=== PATIENT | female | born 1955 | race Caucasian/White ===

== ENCOUNTER 2017-01-03 20:46 | Emergency (ER) | payer OTHER ==
[~2017-01-03] VITALS: Ht 172.7 cm; Wt 95.9 kg
[~2017-01-03 20:46] MED LIST: ACCUPRIL10 MG PO; ACCUPRIL20 MG PO; ACCUPRIL40 MG PO; ALPRAZOLAM0.25 M2 PO; AMLODIPINE BESYL5 MG PO; ASPIR-TRIN325 M1 PO; ASPIRIN325 MG PO; BAYER ASPIRIN325 M1 PO; Benadryl PO; CRESTOR5 MG PO; Cipro PO; Coumadin,Jantoven PO; DIABETA,MICRONAS5 MG PO; DIABETA2.5 MG PO; DILAUDID2 MG PO; DILAUDID4 MG PO; Diabeta,Micronase PO; Dilaudid PO; EFFIENT10 MG PO; Ecotrin PO; Effient PO; Feosol PO; GLUCOPHAGE1000 M1 PO; GLUCOPHAGE1000 MG PO; GLYBURIDE2.5 MG PO; GLYBURIDE5 MG PO; Glucophage PO; HYDROCODON-ACE1 EAC7 PO; ISOSORBIDE MONO30 MG PO; Januvia PO; LABETALOL HCL300 MG PO; LEVAQUIN750 MG PO; LITE COAT ASPI325 M1 PO; LOPRESSOR50 MG PO; Lopressor PO; METFORMIN HCL1000 MG PO; METOPROLOL SUCC50 MG PO; METOPROLOL TART50 MG PO; NAPROSYN500 MG PO; NITROSTAT0.4 MG SL; NORCO 5/3251 TABLET PO; NORCO 7.5/321 TABLET PO; NORMODYNE,TRAN200 MG PO; NORVASC2.5 MG PO; NORVASC5 MG PO; NOVOLOG 10100 UNITS/ SC; NOVOLOG PE100 UNITS/ SC; Normodyne,Trandate PO; OXYCODONE HCL10 MG PO; OXYCODONE HCL5 M1; OXYCONTIN20 MG PO; PREDNISONE20 MG PO; PROMETHAZINE HC25 M1 PO; PROTONIX40 MG PO; QUINAPRIL HCL20 MG PO; QUINAPRIL HCL40 MG PO; SENOKOT S,PE1 TABLET PO; Senokot S,Pericolace PO; Skelaxin PO; TOPROL XL50 MG PO; TYLENOL REGULA325 MG PO; Theragran PO; VALIUM5 MG PO; VANCOMYCIN1 GM/250 M IV; VITAMIN D31000 UNIT PO; VYTORIN 10/21 TABLET PO; Vicodin,Norco 5/325 PO; WARFARIN SODIUM1 MG PO; Xanax PO; ZOFRAN4 MG PO; labetalol PO
[2017-01-03] MEDS ORDERED: ULTRAM50 MG PO (21:20)
[2017-01-03 21:24] VITALS: BP 180/82
[2017-01-10] MEDS ORDERED: GLUCOPHAGE500 MG PO (13:49)
[2017-01-10] MEDS ORDERED: [UNRECOGNIZED DRUG - CODE] SL (13:51)
== END 2017-01-03 21:33 | disposition home or self-care (01) ==
LOC: EXP 20:46 → EME 20:46 → EXP 21:33
DX: M79.642 Pain in left hand (principal); I10 Essential (primary) hypertension; E11.9 Type 2 diabetes mellitus without complications; Z79.82 Long term (current) use of aspirin; Z79.84 Long term (current) use of oral hypoglycemic drugs; Z79.4 Long term (current) use of insulin
CPT/HCPCS: 99281; 99284; J8540

== ENCOUNTER 2017-01-16 06:30 | Inpatient (IN) | payer OTHER ==
[~2017-01-16] VITALS: Ht 172.7 cm; Wt 93.1 kg
[~2017-01-16 06:30] MED LIST changes: +GLUCOPHAGE500 MG PO; +ULTRAM50 MG PO; +[UNRECOGNIZED DRUG - CODE] SL
[2017-01-16 07:38] VITALS: BP 142/76
[2017-01-16 08:09] LABS: POINT-OF-CARE METER ID UU13113694
[2017-01-16 12:07] LABS: POINT-OF-CARE METER ID UU13113675
[2017-01-16 13:43] VITALS: BP 148/77
[2017-01-16 15:24] VITALS: BP 133/71
[2017-01-16 16:43] LABS: POINT-OF-CARE METER ID UU13113712
[2017-01-16 20:28] VITALS: BP 172/74
[2017-01-16 22:01] LABS: POINT-OF-CARE METER ID UU13113712
[2017-01-16 23:56] VITALS: BP 171/72
[2017-01-17 04:23] VITALS: BP 178/81
[2017-01-17 06:40] LABS: HEMATOCRIT 36.7 % (36.0-46.0); MCV 93.6 FL (83-99)
[2017-01-17 07:58] LABS: POINT-OF-CARE METER ID UU13113712
[2017-01-17 08:00] VITALS: BP 198/80
[2017-01-17 11:30] LABS: POINT-OF-CARE METER ID UU13113712
[2017-01-17 12:23] VITALS: BP 156/75
[2017-01-17 15:53] VITALS: BP 176/82
[2017-01-17 16:38] LABS: POINT-OF-CARE METER ID UU13113712
[2017-01-17 20:04] VITALS: BP 191/89
[2017-01-17 22:09] LABS: POINT-OF-CARE METER ID UU13113712
[2017-01-18] VITALS (9 sets, daily range): BP systolic 128–176; BP diastolic 72–85
[2017-01-18 07:08] LABS: HEMATOCRIT 35.8 % (36.0-46.0)
[2017-01-18 07:26] LABS: POINT-OF-CARE METER ID UU13113712
[2017-01-18 11:32] LABS: POINT-OF-CARE METER ID UU13113712
[2017-01-18 16:20] LABS: POINT-OF-CARE METER ID UU13113712
[2017-01-18 21:31] LABS: POINT-OF-CARE METER ID UU14149397
[2017-01-19 04:37] VITALS: BP 152/72
[2017-01-19 06:32] LABS: POINT-OF-CARE METER ID UU14149397
[2017-01-19 08:26] VITALS: BP 132/66
[2017-01-19] MEDS ORDERED: OXYCONTIN10 MG PO (09:11)
[2017-01-19] MEDS ORDERED: OXYCODONE HCL5 MG PO (09:11)
[2017-01-19] MEDS ORDERED: ELIQUIS2.5 MG PO (09:11)
[2017-01-19] MEDS ORDERED: ONDANSETRON ODT4 MG PO (09:11)
[2017-01-19] MEDS ORDERED: SENNA PLUS TAB1 EACH PO (09:11)
[2017-01-19 11:04] VITALS: BP 123/60
[2017-01-19 17:23] LABS: POINT-OF-CARE METER ID UU14208753
[2017-01-19 21:39] LABS: POINT-OF-CARE METER ID UU14149397
[2017-01-19 23:26] VITALS: BP 143/66
[2017-01-20 08:23] VITALS: BP 137/58
== END 2017-01-20 15:17 | DRG 470 ==
LOC: 2SOUTH 06:30 → 3WEST 13:09 → 2SOUTH 13:16 → 3WEST 01-18 11:54 → 3EAST 01-18 18:15
PROVIDERS: Orthopaedic Surgery
PROC: 0SRC0J9 Replacement of Right Knee Joint with Synthetic Substitute, Cemented, Open Approach (ICD-10-PCS; principal; 2017-01-16)
DX: M17.11 Unilateral primary osteoarthritis, right knee (principal); I25.10 Atherosclerotic heart disease of native coronary artery without angina pectoris; Z95.5 Presence of coronary angioplasty implant and graft; E78.2 Mixed hyperlipidemia; E11.9 Type 2 diabetes mellitus without complications; I25.2 Old myocardial infarction; I10 Essential (primary) hypertension; R50.9 Fever, unspecified; G89.18 Other acute postprocedural pain; Z96.652 Presence of left artificial knee joint; E11.65 Type 2 diabetes mellitus with hyperglycemia
CPT/HCPCS: 71010; 82948; 85014; 85018; 93971; 97530 GO; 97530 GP; C1713; J0131; J0690; J1170; J1815; J1885; J2175; J2250; J2405; J2795; J3010; J7030; J7050

== ENCOUNTER 2017-01-29 09:13 | Observation (INO) | payer OTHER ==
[~2017-01-29] VITALS: Ht 172.7 cm; Wt 89.7 kg
[~2017-01-29 09:13] MED LIST changes: +ELIQUIS2.5 MG PO; +ONDANSETRON ODT4 MG PO; +OXYCODONE HCL5 MG PO; +OXYCONTIN10 MG PO; +SENNA PLUS TAB1 EACH PO
[2017-01-29 09:58] LABS: EOSINOPHIL (%) 1.7 % (0-5); EOSINOPHIL COUNT 0.1 K/uL (0-0.3); HEMATOCRIT 32.8 % (36.0-46.0); IMMATURE GRANULOCYTE (%) 0.5 % (0.0-0.7); INSTRUMENT ABS NEUTROPHIL CT 5.8 K/uL; LYMPHOCYTE COUNT 1.6 K/uL (1.0-2.8); MCH 29.7 PG (29.0-34.0); MCV 92.9 FL (83-99); MEAN PLAT.VOLUME 9.5 uM^3 (9.5-12.4); MONOCYTE (%) 6.3 % (3-12); MONOCYTE COUNT 0.5 K/uL (0-0.8); NEUTROPHIL (%) 71.9 % (45-76); NEUTROPHIL COUNT 5.8 K/uL (1.8-6.4); RBC DIS.WIDTH-CV 13.1 % (11.8-14.6); RBC DIS.WIDTH-SD 44.3 % (39-53); WHITE BLOOD COUNT 8.1 K/uL (4.1-10.2)
[2017-01-29 09:59] LABS: RED BLOOD COUNT 3.53 M/uL (3.80-5.20)
[2017-01-29 10:00] LABS: PLATELET COUNT 349 K/uL (156-360)
[2017-01-29 10:04] LABS: INTER. NORMALIZED RATIO 1.1; PROTHROMBIN TIME 12.1 SEC (10.2-12.9)
[2017-01-29 10:28] LABS: ANION GAP 13 MEQ/L (2-14); CHLORIDE 104 MEQ/L (99-109); POTASSIUM 3.7 MEQ/L (3.7-5.4); SAMPLE HEMOLYSIS CHECK 0; SAMPLE ICTERIC CHECK 0; SAMPLE LIPEMIA CHECK 0; SODIUM 139 MEQ/L (136-147); TOTAL BILIRUBIN 0.6 MG/DL (0.0-1.0)
[2017-01-29 10:34] LABS: ALKALINE PHOSPHATASE 220 IU/L (3-129); GFR ESTIMATE (CALCULATED) > 59 mL/min/; GLUCOSE 140 mg/dL (70-99); UREA NITROGEN (BUN) 22 mg/dL (9-23)
[2017-01-29 11:58] LABS: POINT-OF-CARE METER ID UU13113702; POINT-OF-CARE USER ID NUTJNM
[2017-01-29] MEDS ORDERED: CYANOCOBALAM1000 MCG PO (12:27)
[2017-01-29] MEDS ORDERED: OXYCONTIN10 MG PO (12:28)
[2017-01-29] MEDS ORDERED: ELIQUIS2.5 MG PO (12:30)
[2017-01-29 13:44] LABS: ADD MIUA? NO; BILIRUBIN NEGATIVE; BLOOD NEGATIVE; COLOR YELLOW ((YELLOW)); GLUCOSE (STRIP) 50; KETONES 20; LEUKOCYTES NEGATIVE; NITRITE NEGATIVE; PROTEIN (STRIP) NEGATIVE; SPECIFIC GRAVITY 1.015 (1.000-1.030); UCUL ADDED? NO; UROBILINOGEN 0.2 MG/DL (0.2-1.0)
[2017-01-29 15:14] LABS: LIPASE 38 U/L (1.0-51.0)
[2017-01-29 16:48] VITALS: BP 141/74
[2017-01-29 18:03] LABS: POINT-OF-CARE METER ID UU13113700
[2017-01-29 20:41] VITALS: BP 140/76
[2017-01-29 21:56] LABS: POINT-OF-CARE METER ID UU13113831
[2017-01-29 23:09] VITALS: BP 157/65
[2017-01-30 03:34] VITALS: BP 135/74
[2017-01-30 05:43] LABS: EOSINOPHIL COUNT 0.1 K/uL (0-0.3); HEMATOCRIT 32.6 % (36.0-46.0); IMMATURE GRANULOCYTE (%) 0.6 % (0.0-0.7); INSTRUMENT ABS NEUTROPHIL CT 4.6 K/uL; LYMPHOCYTE COUNT 1.8 K/uL (1.0-2.8); MCH 30.5 PG (29.0-34.0); MCHC 32.5 G/DL (30.0-36.0); MCV 93.7 FL (83-99); MEAN PLAT.VOLUME 9.8 uM^3 (9.5-12.4); MONOCYTE (%) 6.8 % (3-12); MONOCYTE COUNT 0.5 K/uL (0-0.8); NEUTROPHIL (%) 65.3 % (45-76); NEUTROPHIL COUNT 4.6 K/uL (1.8-6.4); PLATELET COUNT 373 K/uL (156-360); RBC DIS.WIDTH-CV 13.4 % (11.8-14.6); RBC DIS.WIDTH-SD 45.8 % (39-53); RED BLOOD COUNT 3.48 M/uL (3.80-5.20); WHITE BLOOD COUNT 7.1 K/uL (4.1-10.2)
[2017-01-30 06:06] LABS: ANION GAP 9 MEQ/L (2-14); CHLORIDE 106 MEQ/L (99-109); GFR ESTIMATE (CALCULATED) 54 mL/min/; HDL CHOLESTEROL 34 MG/DL (Desirable>=50); LDL CHOLESTEROL 102 mg/dL (Desirable<100); NON-HDL CHOLESTEROL 127 mg/dL (Desirable<160); POTASSIUM 4.2 MEQ/L (3.7-5.4); SAMPLE HEMOLYSIS CHECK 0; SAMPLE ICTERIC CHECK 0; SAMPLE LIPEMIA CHECK 0; SODIUM 142 MEQ/L (136-147); TOTAL CHOLESTEROL 161 mg/dL (Desirable<200); TRIGLYCERIDES 123 MG/DL (Normal: <150); UREA NITROGEN (BUN) 17 mg/dL (9-23)
[2017-01-30 06:10] LABS: GLUCOSE 91 mg/dL (70-99)
[2017-01-30 07:19] VITALS: BP 149/74
[2017-01-30 08:18] LABS: Estimated Average Glucose 134 mg/dL (70-123); HEMOGLOBIN A1c (GLYCOHEMOGLOB) 6.3 % HGB (Below 5.7)
== END 2017-01-30 11:01 | disposition home or self-care (01) ==
LOC: EME → EDBD 09:13 → EME 09:13 → 5WEST 13:12 → EDOF 13:12 → 5WEST 16:43
PROVIDERS: Emergency Medicine; Family Medicine
DX: R41.82 Altered mental status, unspecified (principal); R11.2 Nausea with vomiting, unspecified; Z96.651 Presence of right artificial knee joint; I25.2 Old myocardial infarction; E11.9 Type 2 diabetes mellitus without complications; Z79.82 Long term (current) use of aspirin; Z79.4 Long term (current) use of insulin; I25.10 Atherosclerotic heart disease of native coronary artery without angina pectoris; I10 Essential (primary) hypertension; R06.02 Shortness of breath
CPT/HCPCS: 70450; 71010; 80048; 80053; 80061; 81003; 82948; 83036; 83690; 85025; 85610; 93005; 99281; 99285; G0378; J2405; J2765; J7030

== ENCOUNTER 2017-02-04 01:07 | Emergency (ER) | payer OTHER ==
[~2017-02-04] VITALS: Ht 172.7 cm; Wt 90.3 kg
[~2017-02-04 01:07] MED LIST changes: +CYANOCOBALAM1000 MCG PO
[2017-02-04 06:47] LABS: EOSINOPHIL (%) 2.7 % (0-5); EOSINOPHIL COUNT 0.2 K/uL (0-0.3); HEMATOCRIT 37.2 % (36.0-46.0); IMMATURE GRANULOCYTE (%) 0.3 % (0.0-0.7); INSTRUMENT ABS NEUTROPHIL CT 4.5 K/uL; LYMPHOCYTE COUNT 1.8 K/uL (1.0-2.8); MCH 29.3 PG (29.0-34.0); MCHC 31.5 G/DL (30.0-36.0); MCV 93.2 FL (83-99); MEAN PLAT.VOLUME 9.5 uM^3 (9.5-12.4); MONOCYTE (%) 5.6 % (3-12); MONOCYTE COUNT 0.4 K/uL (0-0.8); NEUTROPHIL (%) 64.9 % (45-76); NEUTROPHIL COUNT 4.5 K/uL (1.8-6.4); PLATELET COUNT 384 K/uL (156-360); RBC DIS.WIDTH-CV 13.9 % (11.8-14.6); RBC DIS.WIDTH-SD 47.3 % (39-53); RED BLOOD COUNT 3.99 M/uL (3.80-5.20); WHITE BLOOD COUNT 6.9 K/uL (4.1-10.2)
[2017-02-04 06:54] LABS: INTER. NORMALIZED RATIO 1.1; PROTHROMBIN TIME 12.5 SEC (10.2-12.9)
[2017-02-04 07:31] LABS: ANION GAP 8 MEQ/L (2-14); CHLORIDE 104 MEQ/L (99-109); GFR ESTIMATE (CALCULATED) > 59 mL/min/; GLUCOSE 132 mg/dL (70-99); POTASSIUM 3.9 MEQ/L (3.7-5.4); SAMPLE HEMOLYSIS CHECK 0; SAMPLE ICTERIC CHECK 0; SAMPLE LIPEMIA CHECK 0; SODIUM 139 MEQ/L (136-147); UREA NITROGEN (BUN) 22 mg/dL (9-23)
[2017-02-04] MEDS ORDERED: PERCOCET 5/31 TABLET PO (09:43)
[2017-02-04] MEDS ORDERED: ROBAXIN750 MG PO (09:43)
[2017-02-04 11:08] VITALS: BP 157/96
== END 2017-02-04 11:09 | disposition home or self-care (01) ==
LOC: EME 01:07
PROVIDERS: Emergency Medicine
DX: M96.840 Postprocedural hematoma of a musculoskeletal structure following a musculoskeletal system procedure (principal); M25.561 Pain in right knee; Z96.651 Presence of right artificial knee joint; Z98.890 Other specified postprocedural states; E11.9 Type 2 diabetes mellitus without complications; Z79.84 Long term (current) use of oral hypoglycemic drugs; Z79.01 Long term (current) use of anticoagulants; Z79.82 Long term (current) use of aspirin; I10 Essential (primary) hypertension
CPT/HCPCS: 80048; 85025; 85610; 93971; 99281; 99285

== ENCOUNTER 2017-03-13 07:29 | Day surgery (SDC) | payer OTHER ==
[~2017-03-13] VITALS: Ht 172.7 cm; Wt 90.7 kg
[~2017-03-13 07:29] MED LIST changes: +PERCOCET 5/31 TABLET PO; +ROBAXIN750 MG PO
[2017-03-13 08:01] LABS: POINT-OF-CARE METER ID UU13113819
[2017-03-13 08:26] VITALS: BP 166/77
[2017-03-13 10:03] LABS: POINT-OF-CARE METER ID UU13113675
[2017-03-13 12:31] VITALS: BP 139/67
[2017-03-13 13:45] VITALS: BP 124/62
[2017-03-13 15:00] VITALS: BP 142/82
== END 2017-03-13 15:00 | disposition home or self-care (01) ==
LOC: SDC 07:29
PROVIDERS: Orthopaedic Surgery
PROC: 0SSCXZZ Reposition Right Knee Joint, External Approach (ICD-10-PCS; principal; 2017-03-13)
DX: M24.661 Ankylosis, right knee (principal); Z96.651 Presence of right artificial knee joint; I10 Essential (primary) hypertension; E11.9 Type 2 diabetes mellitus without complications; E78.2 Mixed hyperlipidemia; I25.2 Old myocardial infarction; Z79.4 Long term (current) use of insulin; Z79.84 Long term (current) use of oral hypoglycemic drugs; Z79.82 Long term (current) use of aspirin; Z95.5 Presence of coronary angioplasty implant and graft
CPT/HCPCS: 82948; J0131; J1170; J1885; J2250; J2405; J3010; Q0175

== ENCOUNTER 2017-03-23 01:34 | Emergency (ER) | payer OTHER ==
[~2017-03-23] VITALS: Ht 172.7 cm; Wt 90.9 kg
[2017-03-23 02:38] LABS: HEMATOCRIT 35.3 % (36.0-46.0); MCH 29.8 PG (29.0-34.0); MCV 93.1 FL (83-99); MEAN PLAT.VOLUME 9.8 uM^3 (9.5-12.4); PLATELET COUNT 284 K/uL (156-360); RBC DIS.WIDTH-CV 13.8 % (11.8-14.6); RBC DIS.WIDTH-SD 46.7 % (39-53); RED BLOOD COUNT 3.79 M/uL (3.80-5.20); WHITE BLOOD COUNT 7.6 K/uL (4.1-10.2)
[2017-03-23 02:48] LABS: CHLORIDE 104 mEq/L (99-109); POTASSIUM 4.1 mEq/L (3.7-5.4); SODIUM 140 mEq/L (136-147)
[2017-03-23 02:50] LABS: GLUCOSE 145 mg/dL (70-99)
[2017-03-23 02:52] LABS: ANION GAP 14 MEQ/L (2-14)
[2017-03-23 02:54] LABS: GFR ESTIMATE (CALCULATED) 54 mL/min/
[2017-03-23 02:55] LABS: UREA NITROGEN (BUN) 25 mg/dL (9-23)
[2017-03-23 03:00] LABS: PROTHROMBIN TIME 10.7 SEC (10.2-12.9)
[2017-03-23 03:02] VITALS: BP 134/74
[2017-03-23 03:03] LABS: PTT 29.9 SEC (25-37)
[2017-03-23 03:48] LABS: ERTH.SED.RATE 19 MM/HR (0-30)
== END 2017-03-23 04:05 | disposition home or self-care (01) ==
LOC: EME 01:34
PROVIDERS: Emergency Medicine
DX: M25.561 Pain in right knee (principal); G89.29 Other chronic pain; Z96.651 Presence of right artificial knee joint; I10 Essential (primary) hypertension; E11.9 Type 2 diabetes mellitus without complications; I25.2 Old myocardial infarction; Z95.5 Presence of coronary angioplasty implant and graft; Z79.82 Long term (current) use of aspirin
CPT/HCPCS: 73564; 80048; 85027; 85610; 85651; 85730; 86140; 93971; 99281; 99283; J3010

== ENCOUNTER 2017-06-20 17:28 | Emergency (ER) | payer OTHER ==
[~2017-06-20] VITALS: Ht 172.7 cm; Wt 90.9 kg
[2017-06-20] MEDS ORDERED: TAMIFLU75 MG PO (17:45)
[2017-06-20] MEDS ORDERED: MOTRIN600 MG PO (17:45)
[2017-06-20 18:00] VITALS: BP 163/93
== END 2017-06-20 18:01 | disposition home or self-care (01) ==
LOC: EME 17:28
DX: J11.1 Influenza due to unidentified influenza virus with other respiratory manifestations (principal); E11.9 Type 2 diabetes mellitus without complications; Z79.4 Long term (current) use of insulin; I10 Essential (primary) hypertension; I25.2 Old myocardial infarction; K21.9 Gastro-esophageal reflux disease without esophagitis; Z86.73 Personal history of transient ischemic attack (TIA), and cerebral infarction without residual deficits; Z96.652 Presence of left artificial knee joint; Z79.82 Long term (current) use of aspirin
CPT/HCPCS: 99281; 99283

== ENCOUNTER 2017-08-06 17:33 | Observation (INO) | payer OTHER ==
[~2017-08-06] VITALS: Ht 172.7 cm; Wt 95.4 kg
[~2017-08-06 17:33] MED LIST changes: +MOTRIN600 MG PO; +TAMIFLU75 MG PO
[2017-08-06 19:25] LABS: HEMATOCRIT 40.3 % (36.0-46.0); HEMOGLOBIN 13.3 G/DL (11.9-15.5); MCH 30.2 PG (29.0-34.0); MCV 91.6 FL (83-99); PLATELET COUNT 229 K/uL (156-360); RBC DIS.WIDTH-CV 14.3 % (11.8-14.6); RBC DIS.WIDTH-SD 47.7 % (39-53); WHITE BLOOD COUNT 6.1 K/uL (4.1-10.2)
[2017-08-06 19:47] LABS: ALBUMIN 3.9 g/dL (3.2-4.8); CHLORIDE 107 mEq/L (99-109); POTASSIUM 4.4 mEq/L (3.7-5.4); SODIUM 140 mEq/L (136-147)
[2017-08-06 19:50] LABS: GLUCOSE 191 mg/dL (70-99); TOTAL PROTEIN 7.2 g/dL (6.4-8.3)
[2017-08-06 19:52] LABS: TOTAL BILIRUBIN 0.2 mg/dL (0.0-1.0)
[2017-08-06 19:53] LABS: ALKALINE PHOSPHATASE 97 IU/L (3-129); CREATININE 1.5 mg/dL (0.6-1.3); GFR ESTIMATE (CALCULATED) 38 mL/min/
[2017-08-06 19:54] LABS: UREA NITROGEN (BUN) 29 mg/dL (9-23)
[2017-08-06 19:55] LABS: AST (GOT) 15 IU/L (2-34)
[2017-08-06 19:56] LABS: ALT (GPT) 19 IU/L (3-49)
[2017-08-06 19:57] LABS: LIPASE 116 U/L (1.0-51.0)
[2017-08-06 19:58] LABS: TROP-I INTERPRETATION NEGATIVE; TROPONIN-I 0.02 ng/mL (0.0-0.30)
[2017-08-06 22:39] VITALS: BP 186/91
[2017-08-07 04:23] VITALS: BP 174/89
[2017-08-07 06:15] LABS: TROP-I INTERPRETATION NEGATIVE; TROPONIN-I 0.02 ng/mL (0.0-0.30)
[2017-08-07 07:57] VITALS: BP 150/84
[2017-08-07 12:13] VITALS: BP 143/77
[2017-08-07 12:35] LABS: TROP-I INTERPRETATION NEGATIVE; TROPONIN-I 0.02 ng/mL (0.0-0.30)
[2017-08-07 16:03] VITALS: BP 121/73
[2017-08-07] MEDS ORDERED: AMLODIPINE BESY10 MG PO (16:03)
== END 2017-08-07 16:54 | disposition home or self-care (01) ==
LOC: EME 17:33 → 5WEST 21:09 → EDOF 21:09 → ENRESERV 21:14 → 5WEST 22:18 → ENPENDDIS 08-07 → 5WEST 08-07 16:54
PROVIDERS: Emergency Medicine; Family Medicine
DX: R07.9 Chest pain, unspecified (principal); I12.9 Hypertensive chronic kidney disease with stage 1 through stage 4 chronic kidney disease, or unspecified chronic kidney disease; N18.2 Chronic kidney disease, stage 2 (mild); E11.22 Type 2 diabetes mellitus with diabetic chronic kidney disease; E78.5 Hyperlipidemia, unspecified; F41.9 Anxiety disorder, unspecified; M19.90 Unspecified osteoarthritis, unspecified site; I25.10 Atherosclerotic heart disease of native coronary artery without angina pectoris; I25.2 Old myocardial infarction; Z95.5 Presence of coronary angioplasty implant and graft; I25.9 Chronic ischemic heart disease, unspecified; Z96.653 Presence of artificial knee joint, bilateral; Z90.49 Acquired absence of other specified parts of digestive tract; Z90.721 Acquired absence of ovaries, unilateral; Z82.49 Family history of ischemic heart disease and other diseases of the circulatory system; Z88.8 Allergy status to other drugs, medicaments and biological substances; Z86.73 Personal history of transient ischemic attack (TIA), and cerebral infarction without residual deficits; Z79.82 Long term (current) use of aspirin; Z79.4 Long term (current) use of insulin; Z79.01 Long term (current) use of anticoagulants
CPT/HCPCS: 71045; 80053; 83690; 84484; 85027; 93005; 99281; 99284; G0378

== ENCOUNTER 2018-02-24 16:33 | Emergency (ER) | payer OTHER ==
[~2018-02-24 16:33] MED LIST changes: +AMLODIPINE BESY10 MG PO
[2018-02-24 16:55] LABS: BASOPHIL (%) 0.5 % (0-1); EOSINOPHIL (%) 2.2 % (0-5); EOSINOPHIL COUNT 0.2 K/uL (0-0.3); HEMATOCRIT 40.3 % (36.0-46.0); HEMOGLOBIN 13.8 G/DL (11.9-15.5); LYMPHOCYTE (%) 34.6 % (15-42); LYMPHOCYTE COUNT 2.5 K/uL (1.0-2.8); MCH 31.9 PG (29.0-34.0); MCHC 34.2 G/DL (30.0-36.0); MCV 93.1 FL (83-99); MONOCYTE (%) 7.4 % (3-12); MONOCYTE COUNT 0.5 K/uL (0-0.8); NEUTROPHIL (%) 54.3 % (45-76); PLATELET COUNT 236 K/uL (156-360); RBC DIS.WIDTH-CV 12.6 % (11.8-14.6); RBC DIS.WIDTH-SD 43.2 % (39-53); RED BLOOD COUNT 4.33 M/uL (3.80-5.20); WHITE BLOOD COUNT 7.3 K/uL (4.1-10.2)
[2018-02-24 17:07] LABS: AMYLASE 63 IU/L (1-118); CHLORIDE 107 mEq/L (99-109); POTASSIUM 4.3 mEq/L (3.7-5.4); SODIUM 139 mEq/L (136-147)
[2018-02-24 17:08] LABS: GLUCOSE 168 mg/dL (70-99)
[2018-02-24 17:12] LABS: CREATININE 1.5 mg/dL (0.6-1.3); GFR ESTIMATE (CALCULATED) 38 mL/min/; SERUM ETHYL ALCOHOL < 10 mg/dL
[2018-02-24 17:13] LABS: UREA NITROGEN (BUN) 28 mg/dL (9-23)
[2018-02-24 17:15] LABS: LIPASE 68 U/L (1.0-51.0)
[2018-02-24 17:55] LABS: APPEARANCE CLEAR ((CLEAR)); BILIRUBIN NEGATIVE; BLOOD NEGATIVE; COLOR COLORLESS ((YELLOW)); GLUCOSE (STRIP) 150; KETONES NEGATIVE; LEUKOCYTES SMALL; NITRITE NEGATIVE; PROTEIN (STRIP) NEGATIVE; SPECIFIC GRAVITY 1.012 (1.000-1.030); UROBILINOGEN 0.2 MG/DL (0.2-1.0)
[2018-02-24 18:13] LABS: AMPHETAMINE NEGATIVE (500 ng/mL); BARBITURATES NEGATIVE (200 ng/mL); BENZODIAZEPINES NEGATIVE (150 ng/mL); BUPRENORPHINE NEGATIVE (10 ng/mL); COCAINE NEGATIVE (150 ng/mL); METHADONE NEGATIVE (200 ng/mL); METHAMPHETAMINE NEGATIVE (500 ng/mL); OPIATES (MORPHINE) NEGATIVE (100 ng/mL); OXYCODONE NEGATIVE (100 ng/mL); PHENCYCLIDINE NEGATIVE (25 ng/mL); PROPOXYPHENE NEGATIVE (300 ng/mL); THC CANNABINOIDS NEGATIVE (50 ng/mL); TRICYCLIC ANTIDEPRESSANTS NEGATIVE (300 ng/mL)
[2018-02-24 18:14] LABS: BACTERIA RARE /HPF; EPITHELIAL CELLS NONE SEEN /HPF; MUCUS TRACE /LPF; RED BLOOD CELLS 0-5 /HPF (0-5); UCUL ADDED? YES
[2018-02-24] MEDS ORDERED: NORCO 5/3251 TABLET PO (18:44)
== END 2018-02-24 19:10 | disposition home or self-care (01) ==
LOC: TRA 16:33
PROVIDERS: Emergency Medicine
DX: S09.90XA Unspecified injury of head, initial encounter (principal); S70.02XA Contusion of left hip, initial encounter; M54.9 Dorsalgia, unspecified; R07.81 Pleurodynia; M79.602 Pain in left arm; M25.512 Pain in left shoulder; W10.8XXA Fall (on) (from) other stairs and steps, initial encounter; Y93.89 Activity, other specified; Y92.008 Other place in unspecified non-institutional (private) residence as the place of occurrence of the external cause; I10 Essential (primary) hypertension; E11.9 Type 2 diabetes mellitus without complications; Z95.5 Presence of coronary angioplasty implant and graft
CPT/HCPCS: 70450; 71260; 72125; 72129; 72132; 73060; 73130; 73502; 73560; 74177; 80048; 81003; 82150; 83690; 85025; 86850; 86900; 86901; 87086 GA; 93005; 99281; 99285; G0480; J3010